=== PATIENT | female | born 1940 | race Hispanic/Latino ===

== ENCOUNTER 2017-10-29 12:31 | Emergency (ER) | payer MEDICARE ==
[~2017-10-29] VITALS: Ht 149.9 cm; Wt 99.8 kg
[~2017-10-29 12:31] MED LIST: AMARYL4 MG PO; BENTYL20 MG PO; BUMETANIDE1 MG PO; CELEXA20 MG PO; CIPRO500 MG PO; DALIRESP500 MCG PO; DOCUSATE SODIU100 MG PO; HYDROCODONE-AP1 EA28 PO; K-DUR20 ME1 PO; LIPITOR10 MG PO; METOLAZONE PO; MINOCYCLINE HCL50 MG PO; MONTELUKAST SOD10 MG PO; NORCO 10MG-325MG1 EA PO; TIMOPTIC 0.5% OP5 ML OP; Z DEPAKOTE PO; Z.0.ACTOS45 MG PO; Z.0.AMLODIPINE BESYL PO; Z.0.GLYBURIDE MICRON PO; Z.0.LASIX40 MG PO; Z.0.OMEPRAZOLE40 MG PO; Z.0.TIZANIDINE HCL4 PO; Z.1.ALPRAZOLAM0.25 M PO
[2017-10-29] MEDS ORDERED: SODIUM CHLORIDE FLUSH 10 ML SYR INJ PRN (13:15)
--- NOTE | 2017-10-29 16:07 | Diagnostic Imaging Report ---
PROCEDURE: Frontal and lateral views of the chest. COMPARISON: None. INDICATIONS: CONGESTION AND SHORTNESS OF BREATH FINDINGS: Lines/tubes: None. Lungs: Basilar subsegmental atelectasis. No consolidation or pulmonary edema. Pleura: There is no pleural effusion or pneumothorax. Heart and mediastinum: The heart size is at the upper limit of normal, unchanged. Bones: No acute bony abnormality. IMPRESSION: No evidence of infection or edema. Dictated by: Volodymyr Butler M.D. on 10/29/2017 at 16:16 Electronically approved by: Volodymyr Butler M.D. on 10/29/2017 at 16:16
[2017-10-29 20:20] LABS: BILIRUBIN,URINE NEGATIVE (NEGATIVE); CLARITY,URINE SL CLOUDY (CLEAR); COLOR,URINE YELLOW (YELLOW); KETONES,URINE NEGATIVE (NEGATIVE); LEUKOCYTE ESTERASE ,URINE 1+ (NEGATIVE); NITRITE,URINE NEGATIVE (NEGATIVE); PROTEIN,URINE DIPSTICK TRACE (NEGATIVE); URINE UROBILINOGEN 0.2 mg/dL (0.2 - 1)
[2017-10-29 20:35] LABS: BASOPHILS # (AUTO) 0.1 (0.0-0.1); BASOPHILS % 1.2 % (0.0-1.0); EOSINOPHILS # (AUTO) 0.1 (0.0-0.4); EOSINOPHILS % 2.5 % (0.0-6.0); HEMATOCRIT 34.8 % (34.2-44.1); HEMOGLOBIN 11.2 g/dL (12.0-16.0); LYMPHOCYTES # (AUTO) 1.4 (1.0-3.2); LYMPHOCYTES % 26.4 % (18.0-39.1); MEAN CORPUSCULAR HEMOGLOBIN 29.3 pg (28-32); MEAN CORPUSCULAR HGB CONC 32.2 g/dL (31-35); MEAN CORPUSCULAR VOLUME 91.1 fL (81-99); MONOCYTES # (AUTO) 0.6 (0.2-0.8); MONOCYTES % 11.1 % (4.4-11.3); NEUTROPHILS % 58.6 % (38.7-80.0); PLATELET COUNT 223 x10e3/uL (140-360); RED BLOOD COUNT 3.82 x10e6/uL (3.6-5.1); RED CELL DISTRIBUTION WIDTH 13.9 % (11.7-14.4)
[2017-10-29 20:38] LABS: RBC,URINE 0-5 /HPF (0-5)
[2017-10-29 20:39] LABS: BACTERIA,URINE FEW /HPF; EPITHELIAL CELLS,URINE FEW /LPF
[2017-10-29 20:53] LABS: ALBUMIN 3.8 g/dL (3.5-5.0); ANION GAP 12.9 mmol/L (8-16); CALCIUM 9.3 mg/dL (8.4-10.2); CREATININE, SERUM 1.03 mg/dL (0.57-1.11)
[2017-10-29 20:54] LABS: POTASSIUM 2.9 mmol/L (3.5-5.1)
[2017-10-29 21:07] LABS: CREATINE KINASE MB 0.4 ng/mL (0.00-5.00); TROPONIN I 0.007 ng/mL (0-0.300)
[2017-10-29] MEDS ORDERED: POTASSIUM CHLORIDE 20 MEQ TAB CR PO ONE (21:30)
[2017-10-29 22:14] VITALS: BP 124/44
== END 2017-10-29 22:18 | disposition home or self-care (01) ==
LOC: ER 12:31
DX: R07.89 Other chest pain (principal); E87.6 Hypokalemia; N30.91 Cystitis, unspecified with hematuria
CPT/HCPCS: 36415; 71020; 80053; 81001; 82550; 82553; 83880; 84484; 85025; 87086; 87400; 93005; 99284

== ENCOUNTER 2021-12-05 16:35 | Observation (INO) | payer MEDICARE ==
[~2021-12-05] VITALS: Ht 149.9 cm; Wt 99.8 kg
[2021-12-05] MEDS ORDERED: SODIUM CHLORIDE 0.9% 1000ML 1,000 ML IV ONE (17:00)
[2021-12-05 17:29] LABS: BASOPHILS # (AUTO) 0.1 (0.0-0.1); BASOPHILS % 0.5 % (0.0-1.0); EOSINOPHILS # (AUTO) 0.1 (0.0-0.4); EOSINOPHILS % 0.8 % (0.0-6.0); HEMOGLOBIN 12.1 g/dL (12.0-16.0); LYMPHOCYTES # (AUTO) 1.5 (1.0-3.2); LYMPHOCYTES % 15.2 % (18.0-39.1); MEAN CORPUSCULAR HEMOGLOBIN 28.5 pg (28-32); MEAN CORPUSCULAR HGB CONC 34.6 g/dL (31-35); MEAN CORPUSCULAR VOLUME 82.5 fL (81-99); MONOCYTES # (AUTO) 0.6 (0.2-0.8); MONOCYTES % 6.4 % (4.4-11.3); NEUTROPHILS # (AUTO) 7.5 (2.1-6.9); NEUTROPHILS % 76.7 % (38.7-80.0); PLATELET COUNT 276 x10e3/uL (140-360); RED BLOOD COUNT 4.24 x10e6/uL (3.6-5.1); RED CELL DISTRIBUTION WIDTH 13.2 % (11.7-14.4)
[2021-12-05 17:54] LABS: ALBUMIN 3.7 g/dL (3.5-5.0); ANION GAP 16.5 mmol/L (8-16); CALCIUM 9.6 mg/dL (8.4-10.2); CREATININE, SERUM 1.53 mg/dL (0.57-1.11); POTASSIUM 4.5 mmol/L (3.5-5.1)
[2021-12-05 17:58] LABS: CLARITY,URINE CLEAR (CLEAR); COLOR,URINE YELLOW (YELLOW); KETONES,URINE NEGATIVE (NEGATIVE); LEUKOCYTE ESTERASE ,URINE NEGATIVE (NEGATIVE); NITRITE,URINE NEGATIVE (NEGATIVE); PROTEIN,URINE DIPSTICK NEGATIVE (NEGATIVE); URINE UROBILINOGEN 0.2 mg/dL (0.2 - 1)
[2021-12-05 18:04] LABS: BACTERIA,URINE FEW /HPF; EPITHELIAL CELLS,URINE FEW /LPF; RBC,URINE 0-5 /HPF (0-5); WBC,URINE (MAN) 0-5 /HPF (0-5)
[2021-12-05] MEDS ORDERED: INSULIN REGULAR, HUMAN 100 UNIT/1 ML SQ ONE (18:15)
[2021-12-05] MEDS ORDERED: DEXTROSE 50% SYRINGE 50 ML IV PRN (18:30)
[2021-12-05] MEDS ORDERED: ONDANSETRON HCL INJ 2MG/ML 2ML 2 MG/ML VIAL IV PRN (18:30)
[2021-12-05 21:00] VITALS: BP 111/57
[2021-12-05] MEDS ORDERED: INSULIN REGULAR, HUMAN 100 UNIT/1 ML SQ SCH (21:00)
[2021-12-05 21:06] VITALS: BP 152/49
[2021-12-05 22:10] VITALS: BP 152/49
[2021-12-06] VITALS (7 sets, daily range): BP systolic 0–172; BP diastolic 64–88
[2021-12-06 06:49] LABS: ANION GAP 10.6 mmol/L (8-16); CALCIUM 8.8 mg/dL (8.4-10.2); CREATININE, SERUM 0.87 mg/dL (0.57-1.11); POTASSIUM 3.6 mmol/L (3.5-5.1)
[2021-12-06] MEDS ORDERED: DOCUSATE SODIUM 100 MG CAP PO SCH (07:15)
[2021-12-06] MEDS ORDERED: DEXTROSE 50% SYRINGE 50 ML IV PRN (07:15)
[2021-12-06] MEDS ORDERED: METFORMIN HCL500 MG PO (07:17)
[2021-12-06] MEDS ORDERED: FAMOTIDINE 20 MG TAB PO SCH (07:30)
[2021-12-06] MEDS: INSULIN REGULAR, HUMAN 100 UNIT/1 ML SQ SCH ×2 (07:30→11:30)
[2021-12-06 07:59] LABS: CHOL/HDL RATIO 3.1 (3.0-3.6)
[2021-12-06] MEDS ORDERED: METFORMIN HCL 500 MG TAB PO SCH (08:00)
[2021-12-06] MEDS ORDERED: GLIMEPIRIDE 2 MG TAB PO SCH (08:00)
[2021-12-06] MEDS ORDERED: AMLODIPINE BESYLATE 5 MG TAB PO SCH (09:00)
[2021-12-06] MEDS ORDERED: TIMOLOL MALEATE 0.5% OPTH DRP 5 ML BTL OP SCH (09:00)
[2021-12-06] MEDS ORDERED: PIOGLITAZONE HCL 45 MG TAB PO SCH (09:00)
[2021-12-06] MEDS ORDERED: DICYCLOMINE HCL 20 MG TAB PO SCH (09:00)
[2021-12-06] MEDS ORDERED: ALPRAZOLAM 0.25 MG TAB PO SCH (09:00)
[2021-12-06] MEDS ORDERED: CITALOPRAM HYDROBROMIDE 20 MG TAB PO SCH (09:00)
[2021-12-06] MEDS ORDERED: LABETALOL HCL 5 MG/ML 20ML VIAL IV NR ×2 (09:15→10:00)
[2021-12-06] MEDS ORDERED: MONTELUKAST SODIUM 10 MG TAB PO SCH (21:00)
== END 2021-12-06 14:39 | disposition home or self-care (01) ==
LOC: ER 16:55 → ERHOLD 18:18 → INTOOBSV 18:18 → MED/SURG2 21:03
PROVIDERS: ADMIT Internal Medicine; ATTEND Internal Medicine
DX: E11.65 Type 2 diabetes mellitus with hyperglycemia (principal); N17.9 Acute kidney failure, unspecified; F03.90 Unspecified dementia, unspecified severity, without behavioral disturbance, psychotic disturbance, mood disturbance, and anxiety; I10 Essential (primary) hypertension; I11.0 Hypertensive heart disease with heart failure; I50.9 Heart failure, unspecified; Z91.14 Patient's other noncompliance with medication regimen; I27.20 Pulmonary hypertension, unspecified; F31.9 Bipolar disorder, unspecified; M81.0 Age-related osteoporosis without current pathological fracture; Z20.822 Contact with and (suspected) exposure to COVID-19; Z79.4 Long term (current) use of insulin
CPT/HCPCS: 36415 ×2; 70450; 71045; 80048; 80053; 80061; 81001; 82948 ×2; 83036; 85025; 94799 ×2; 97116; 97139; 97161; 99284; G0378 ×2; J1817 ×2; U0002

== ENCOUNTER 2022-10-04 15:48 | Inpatient (IN) | payer MEDICARE ==
[~2022-10-04] VITALS: Ht 149.9 cm; Wt 38.6 kg
[~2022-10-04 15:48] MED LIST changes: +EPHEDRINE SULFATE INJ 50 MG/ML VIAL ONE; +LIDOCAINE HCL 2% LOCAL INJ 5 ML SDV VIAL INJ ONE; +METFORMIN HCL500 MG PO; +PROPOFOL IV EMULSION 10 MG/ML 20 ML VIAL ONE
[2022-10-04] MEDS ORDERED: SODIUM CHLORIDE 0.9% 1000ML 1,000 ML IV SCH ×2 (17:15)
[2022-10-04 17:37] LABS: BASOPHILS % 0.3 % (0.0-1.0); EOSINOPHILS % 0.1 % (0.0-6.0); HEMATOCRIT 46.9 % (34.2-44.1); HEMOGLOBIN 13.9 g/dL (12.0-16.0); LYMPHOCYTES # (AUTO) 2.4 (1.0-3.2); LYMPHOCYTES % 17.6 % (18.0-39.1); MEAN CORPUSCULAR HEMOGLOBIN 29.6 pg (28-32); MEAN CORPUSCULAR HGB CONC 29.6 g/dL (31-35); MONOCYTES # (AUTO) 1.5 (0.2-0.8); MONOCYTES % 10.8 % (4.4-11.3); NEUTROPHILS # (AUTO) 9.5 (2.1-6.9); NEUTROPHILS % 70.6 % (38.7-80.0); PLATELET COUNT 391 x10e3/uL (140-360); RED BLOOD COUNT 4.69 x10e6/uL (3.6-5.1); RED CELL DISTRIBUTION WIDTH 14.3 % (11.7-14.4)
[2022-10-04 17:42] LABS: CLARITY,URINE HAZY (CLEAR); COLOR,URINE BROWN (YELLOW); KETONES,URINE TRACE (NEGATIVE); LEUKOCYTE ESTERASE ,URINE NEGATIVE (NEGATIVE); NITRITE,URINE POSITIVE (NEGATIVE); PROTEIN,URINE DIPSTICK 2+ (NEGATIVE); URINE UROBILINOGEN 1 mg/dL (0.2 - 1)
[2022-10-04 17:43] LABS: INR 1.1; PROTHROMBIN TIME 14.4 seconds (11.9-14.5)
[2022-10-04 17:44] LABS: AMORPHOUS SEDIMENT,URINE FEW (FEW); BACTERIA,URINE FEW /HPF; EPITHELIAL CELLS,URINE FEW /LPF; MUCUS,URINE FEW (RARE); RBC,URINE 0-5 /HPF (0-5)
[2022-10-04 17:44] LABS: PARTIAL THROMBOPLASTIN TIME 24.9 seconds (23.8-35.5)
[2022-10-04 17:51] LABS: ALBUMIN 3.3 g/dL (3.5-5.0); ALBUMIN/GLOBULIN RATIO 0.8 (0.8-2.0); ANION GAP 29.9 mmol/L (8-16); CALCIUM 9.9 mg/dL (8.4-10.2); CREATININE, SERUM 2.65 mg/dL (0.57-1.11)
[2022-10-04 17:55] LABS: POTASSIUM 2.9 mmol/L (3.5-5.1)
[2022-10-04 17:57] LABS: CREATINE KINASE MB 1.8 ng/mL (0-5.0)
[2022-10-04] MEDS ORDERED: AMIODARONE HCL 150 MG/100 ML BAG IV ONE (18:00)
[2022-10-04] MEDS ORDERED: AMIODARONE 900MG 500 ML IV SCH (18:00)
[2022-10-04 18:07] LABS: LYMPHOCYTES % (MANUAL) 25 % (19-48); MONOCYTES % (MANUAL) 5 % (3.4-9.0); NEUTROPHILS % (MANUAL) 69 % (40-74); PLATELET ESTIMATE ADEQUATE; PLATELET MORPHOLOGY COMMENT NORMAL
[2022-10-04 18:08] LABS: HYPOCHROMASIA SLIGHT; RBC MORPHOLOGY COMMENT NORMAL
[2022-10-04] MEDS ORDERED: POTASSIUM CHLORIDE 20MEQ/100ML 200 ML IV ONE (18:15)
[2022-10-04] MEDS ORDERED: DIGOXIN INJ 0.25 MG/ML 2 ML AMP ONE (18:24)
[2022-10-04] MEDS ORDERED: AMIODARONE HCL 100 ML IV ONE (18:25)
[2022-10-04] MEDS ORDERED: AMIODARONE 900MG 500 ML IV ONE (18:25)
[2022-10-04] MEDS ORDERED: DIGOXIN INJ 0.25 MG/ML 2 ML AMP IV ONE (18:30)
[2022-10-04] MEDS ORDERED: ONDANSETRON HCL INJ 2MG/ML 2ML 2 MG/ML VIAL IV PRN (19:30)
[2022-10-04] MEDS ORDERED: SODIUM CHLORIDE 0.45% 1,000 ML IV ONE ×2 (19:30→23:45)
[2022-10-04] MEDS ORDERED: DEXTROSE 50% SYRINGE 50 ML IV PRN (19:30)
[2022-10-04 20:30] VITALS: BP 120/70
[2022-10-04 20:45] VITALS: BP 133/66
[2022-10-04 21:00] VITALS: BP 153/60
[2022-10-04] MEDS: INSULIN REGULAR, HUMAN 100 UNIT/1 ML SQ SCH (21:00)
[2022-10-04 21:15] VITALS: BP 160/68
[2022-10-04 22:00] VITALS: BP 142/70
[2022-10-04 23:00] VITALS: BP 138/72
[2022-10-04] MEDS: POTASSIUM CHLORIDE 20MEQ/100ML 200 ML IV SCH (23:58)
[2022-10-05] VITALS (27 sets, daily range): BP systolic 121–183; BP diastolic 57–108
[2022-10-05] MEDS: POTASSIUM CHLORIDE 20MEQ/100ML 200 ML IV SCH
[2022-10-05] MEDS ORDERED: GUAIFENESIN/DEXTROMETHORPHAN LIQD 5 ML UDC PO PRN (05:30)
[2022-10-05] MEDS ORDERED: ACETAMINOPHEN 325 MG TAB PO PRN (05:30)
[2022-10-05] MEDS ORDERED: THIAMINE HCL INJ 100 MG/ML 2ML VIAL IV ONE (05:30)
[2022-10-05] MEDS ORDERED: MELATONIN 3 MG TAB PO PRN (05:30)
[2022-10-05] MEDS ORDERED: DOCUSATE SODIUM 100 MG CAP PO PRN (05:30)
[2022-10-05 06:56] LABS: BASOPHILS % 0.2 % (0.0-1.0); EOSINOPHILS % 0.2 % (0.0-6.0); HEMATOCRIT 35.2 % (34.2-44.1); HEMOGLOBIN 10.6 g/dL (12.0-16.0); LYMPHOCYTES # (AUTO) 0.9 (1.0-3.2); LYMPHOCYTES % 8.8 % (18.0-39.1); MEAN CORPUSCULAR HEMOGLOBIN 29.7 pg (28-32); MEAN CORPUSCULAR HGB CONC 30.1 g/dL (31-35); MEAN CORPUSCULAR VOLUME 98.6 fL (81-99); MONOCYTES # (AUTO) 1.1 (0.2-0.8); MONOCYTES % 10.9 % (4.4-11.3); NEUTROPHILS # (AUTO) 7.9 (2.1-6.9); NEUTROPHILS % 79.5 % (38.7-80.0); PLATELET COUNT 226 x10e3/uL (140-360); RED BLOOD COUNT 3.57 x10e6/uL (3.6-5.1)
[2022-10-05 07:16] LABS: ALBUMIN 2.5 g/dL (3.5-5.0); ALBUMIN/GLOBULIN RATIO 0.8 (0.8-2.0); ANION GAP 19.5 mmol/L (8-16); CALCIUM 8.3 mg/dL (8.4-10.2); CREATININE, SERUM 1.66 mg/dL (0.57-1.11); POTASSIUM 3.5 mmol/L (3.5-5.1)
[2022-10-05 07:36] LABS: MAGNESIUM 1.3 MG/DL (1.3-2.1); PHOSPHORUS 2.2 MG/DL (2.3-4.7)
[2022-10-05] MEDS: MULTIVITAMINS/MINERALS TAB PO SCH (08:03)
[2022-10-05] MEDS: HEPARIN SOD (PORCINE) 5,000 UNIT/ML VIAL SC SCH ×2 (08:11→21:16)
[2022-10-05] MEDS: INSULIN REGULAR, HUMAN 100 UNIT/1 ML SQ SCH ×4 (08:12→21:00)
[2022-10-05 09:13] LABS: BAND NEUTROPHILS % (MANUAL) 1 %; LYMPHOCYTES % (MANUAL) 7 % (19-48); MONOCYTES % (MANUAL) 5 % (3.4-9.0); NEUTROPHILS % (MANUAL) 87 % (40-74); PLATELET ESTIMATE ADEQUATE; PLATELET MORPHOLOGY COMMENT NORMAL; RBC MORPHOLOGY COMMENT NORMAL
[2022-10-05] MEDS: SODIUM CHLORIDE 0.45% 1,000 ML IV SCH ×2 (12:18→22:28)
[2022-10-05] MEDS ORDERED: POTASSIUM CHLORIDE 20MEQ/100ML 200 ML IV ONE (12:30)
[2022-10-05] MEDS: HYDRALAZINE HCL 20 MG/ML VIAL IV PRN (13:03)
[2022-10-05] MEDS: AMIODARONE 900MG 500 ML IV SCH (18:49)
[2022-10-06] VITALS (26 sets, daily range): BP systolic 108–197; BP diastolic 54–100
[2022-10-06] MEDS: HYDRALAZINE HCL 20 MG/ML VIAL IV PRN ×3 (03:15→20:16)
[2022-10-06 06:02] LABS: BASOPHILS # (AUTO) 0.1 (0.0-0.1); BASOPHILS % 0.5 % (0.0-1.0); EOSINOPHILS # (AUTO) 0.1 (0.0-0.4); EOSINOPHILS % 0.5 % (0.0-6.0); HEMATOCRIT 34.2 % (34.2-44.1); HEMOGLOBIN 11.3 g/dL (12.0-16.0); LYMPHOCYTES # (AUTO) 0.9 (1.0-3.2); LYMPHOCYTES % 9.6 % (18.0-39.1); MEAN CORPUSCULAR HEMOGLOBIN 30.2 pg (28-32); MEAN CORPUSCULAR VOLUME 91.4 fL (81-99); MONOCYTES # (AUTO) 0.7 (0.2-0.8); MONOCYTES % 6.8 % (4.4-11.3); NEUTROPHILS # (AUTO) 7.9 (2.1-6.9); NEUTROPHILS % 81.8 % (38.7-80.0); PLATELET COUNT 198 x10e3/uL (140-360); RED BLOOD COUNT 3.74 x10e6/uL (3.6-5.1); RED CELL DISTRIBUTION WIDTH 14.1 % (11.7-14.4)
[2022-10-06 06:31] LABS: ALBUMIN 2.4 g/dL (3.5-5.0); ALBUMIN/GLOBULIN RATIO 0.7 (0.8-2.0); ANION GAP 19.3 mmol/L (8-16); CALCIUM 8.3 mg/dL (8.4-10.2); CREATININE, SERUM 0.92 mg/dL (0.57-1.11); POTASSIUM 3.3 mmol/L (3.5-5.1)
[2022-10-06] MEDS: MULTIVITAMINS/MINERALS TAB PO SCH (07:48)
[2022-10-06] MEDS: SODIUM CHLORIDE 0.45% 1,000 ML IV SCH ×2 (08:05→18:03)
[2022-10-06] MEDS: HEPARIN SOD (PORCINE) 5,000 UNIT/ML VIAL SC SCH ×2 (08:08→20:19)
[2022-10-06] MEDS: INSULIN REGULAR, HUMAN 100 UNIT/1 ML SQ SCH ×4 (08:14→20:15)
[2022-10-06] MEDS ORDERED: POTASSIUM CHLORIDE 20MEQ/100ML 200 ML IV ONE (15:00)
[2022-10-07] VITALS (29 sets, daily range): BP systolic 116–210; BP diastolic 46–133
[2022-10-07] MEDS: HYDRALAZINE HCL 20 MG/ML VIAL IV PRN ×2 (02:31→11:23)
[2022-10-07] MEDS: SODIUM CHLORIDE 0.45% 1,000 ML IV SCH (05:13)
[2022-10-07 06:34] LABS: BASOPHILS % 0.2 % (0.0-1.0); EOSINOPHILS % 0.3 % (0.0-6.0); HEMATOCRIT 35.8 % (34.2-44.1); LYMPHOCYTES # (AUTO) 0.8 (1.0-3.2); LYMPHOCYTES % 8.6 % (18.0-39.1); MEAN CORPUSCULAR HEMOGLOBIN 29.2 pg (28-32); MEAN CORPUSCULAR HGB CONC 30.7 g/dL (31-35); MONOCYTES # (AUTO) 0.5 (0.2-0.8); MONOCYTES % 5.2 % (4.4-11.3); NEUTROPHILS % 85.1 % (38.7-80.0); PLATELET COUNT 201 x10e3/uL (140-360); RED BLOOD COUNT 3.77 x10e6/uL (3.6-5.1); RED CELL DISTRIBUTION WIDTH 13.4 % (11.7-14.4)
[2022-10-07 07:14] LABS: ALBUMIN 2.3 g/dL (3.5-5.0); ALBUMIN/GLOBULIN RATIO 0.7 (0.8-2.0); ANION GAP 20.3 mmol/L (8-16); CALCIUM 8.1 mg/dL (8.4-10.2); CREATININE, SERUM 0.75 mg/dL (0.57-1.11); POTASSIUM 3.3 mmol/L (3.5-5.1)
[2022-10-07] MEDS: HEPARIN SOD (PORCINE) 5,000 UNIT/ML VIAL SC SCH ×2 (08:35→20:12)
[2022-10-07] MEDS: INSULIN REGULAR, HUMAN 100 UNIT/1 ML SQ SCH ×4 (08:41→20:12)
[2022-10-07] MEDS ORDERED: POTASSIUM CHLORIDE 20MEQ/100ML 100 ML IV ONE (08:45)
[2022-10-07] MEDS: MULTIVITAMINS/MINERALS TAB PO SCH ×2 (08:52→09:00)
[2022-10-07] MEDS ORDERED: DEXTROSE 5%/0.45% SOD CHL 1,000 ML IV SCH (09:45)
[2022-10-07] MEDS ORDERED: Vancomycin IV 1 GM in SODIUM CHLORIDE 0.9% 250ML 250 ML IV ONE (12:00)
[2022-10-07] MEDS: DEXTROSE 5%/0.45% SOD CHL 1,000 ML IV SCH (19:29)
[2022-10-07] MEDS: ALBUTEROL/IPRATROPIUM 3 ML NEB NEB PRN (22:20)
[2022-10-08] VITALS (25 sets, daily range): BP systolic 109–161; BP diastolic 46–131
[2022-10-08] MEDS: ALBUTEROL/IPRATROPIUM 3 ML NEB NEB PRN ×2 (02:55→19:50)
[2022-10-08] MEDS: DEXTROSE 5%/0.45% SOD CHL 1,000 ML IV SCH ×2 (03:26→22:18)
[2022-10-08 06:43] LABS: BASOPHILS # (AUTO) 0.1 (0.0-0.1); BASOPHILS % 0.9 % (0.0-1.0); HEMATOCRIT 29.8 % (34.2-44.1); HEMOGLOBIN 10.2 g/dL (12.0-16.0); LYMPHOCYTES # (AUTO) 0.7 (1.0-3.2); LYMPHOCYTES % 5.5 % (18.0-39.1); MEAN CORPUSCULAR HEMOGLOBIN 29.7 pg (28-32); MEAN CORPUSCULAR HGB CONC 34.2 g/dL (31-35); MEAN CORPUSCULAR VOLUME 86.9 fL (81-99); MONOCYTES # (AUTO) 0.3 (0.2-0.8); MONOCYTES % 2.3 % (4.4-11.3); NEUTROPHILS # (AUTO) 10.7 (2.1-6.9); NEUTROPHILS % 90.6 % (38.7-80.0); PLATELET COUNT 129 x10e3/uL (140-360); RED BLOOD COUNT 3.43 x10e6/uL (3.6-5.1); RED CELL DISTRIBUTION WIDTH 13.2 % (11.7-14.4)
[2022-10-08 07:15] LABS: ALBUMIN 2.2 g/dL (3.5-5.0); ALBUMIN/GLOBULIN RATIO 0.8 (0.8-2.0); CALCIUM 7.7 mg/dL (8.4-10.2); CREATININE, SERUM 0.75 mg/dL (0.57-1.11)
[2022-10-08] MEDS: INSULIN REGULAR, HUMAN 100 UNIT/1 ML SQ SCH ×4 (08:08→21:00)
[2022-10-08] MEDS: HEPARIN SOD (PORCINE) 5,000 UNIT/ML VIAL SC SCH ×2 (08:13→20:58)
[2022-10-08] MEDS: MULTIVITAMINS/MINERALS TAB PO SCH (08:13)
[2022-10-08 08:49] LABS: BAND NEUTROPHILS % (MANUAL) 2 %; LYMPHOCYTES % (MANUAL) 5 % (19-48); MONOCYTES % (MANUAL) 1 % (3.4-9.0); MYELOCYTES % (MANUAL) 1 % (0-0); NEUTROPHILS % (MANUAL) 91 % (40-74)
[2022-10-08 08:50] LABS: PLATELET ESTIMATE SLIGHTLY DECREASED; PLATELET MORPHOLOGY COMMENT NORMAL; RBC MORPHOLOGY COMMENT NORMAL
[2022-10-08] MEDS ORDERED: POTASSIUM CHLORIDE 20MEQ/100ML 100 ML IV ONE ×2 (09:00→12:00)
[2022-10-08] MEDS ORDERED: QUETIAPINE FUMARATE 25 MG TAB PO SCH (20:00)
[2022-10-08] MEDS ORDERED: QUETIAPINE FUMARATE 25 MG TAB PO PRN (20:15)
[2022-10-09] VITALS (30 sets, daily range): BP systolic 72–162; BP diastolic 36–116
[2022-10-09] MEDS: INSULIN REGULAR, HUMAN 100 UNIT/1 ML SQ SCH ×4 (07:53→20:23)
[2022-10-09] MEDS: HEPARIN SOD (PORCINE) 5,000 UNIT/ML VIAL SC SCH ×2 (08:29→20:30)
[2022-10-09] MEDS: MULTIVITAMINS/MINERALS TAB PO SCH (08:35)
[2022-10-09 08:49] LABS: BASOPHILS % 0.1 % (0.0-1.0); EOSINOPHILS % 0.1 % (0.0-6.0); HEMATOCRIT 28.7 % (34.2-44.1); HEMOGLOBIN 9.5 g/dL (12.0-16.0); LYMPHOCYTES # (AUTO) 0.5 (1.0-3.2); MEAN CORPUSCULAR HEMOGLOBIN 29.9 pg (28-32); MEAN CORPUSCULAR HGB CONC 33.1 g/dL (31-35); MEAN CORPUSCULAR VOLUME 90.3 fL (81-99); MONOCYTES # (AUTO) 0.2 (0.2-0.8); MONOCYTES % 1.5 % (4.4-11.3); NEUTROPHILS # (AUTO) 9.6 (2.1-6.9); NEUTROPHILS % 92.9 % (38.7-80.0); PLATELET COUNT 123 x10e3/uL (140-360); RED BLOOD COUNT 3.18 x10e6/uL (3.6-5.1); RED CELL DISTRIBUTION WIDTH 13.2 % (11.7-14.4)
[2022-10-09 09:03] LABS: ANION GAP 15.2 mmol/L (8-16); CALCIUM 7.4 mg/dL (8.4-10.2); CREATININE, SERUM 0.74 mg/dL (0.57-1.11); PHOSPHORUS 2.6 MG/DL (2.3-4.7); POTASSIUM 3.2 mmol/L (3.5-5.1)
[2022-10-09 09:08] LABS: MAGNESIUM 0.8 MG/DL (1.3-2.1)
[2022-10-09] MEDS ORDERED: POTASSIUM CHLORIDE 20MEQ/100ML 200 ML IV ONE (11:45)
[2022-10-09] MEDS ORDERED: MAGNESIUM SULFATE 2GM/50ML 50 ML IV ONE (11:45)
[2022-10-09] MEDS: DEXTROSE 5%/0.45% SOD CHL 1,000 ML IV SCH (14:13)
[2022-10-10] VITALS (26 sets, daily range): BP systolic 101–175; BP diastolic 47–99
[2022-10-10] MEDS: DEXTROSE 5%/0.45% SOD CHL 1,000 ML IV SCH ×2 (06:32→22:51)
[2022-10-10 07:03] LABS: BASOPHILS % 0.4 % (0.0-1.0); EOSINOPHILS % 0.3 % (0.0-6.0); HEMOGLOBIN 9.2 g/dL (12.0-16.0); LYMPHOCYTES # (AUTO) 0.5 (1.0-3.2); LYMPHOCYTES % 6.6 % (18.0-39.1); MEAN CORPUSCULAR HEMOGLOBIN 29.1 pg (28-32); MEAN CORPUSCULAR HGB CONC 34.1 g/dL (31-35); MONOCYTES # (AUTO) 0.1 (0.2-0.8); NEUTROPHILS # (AUTO) 6.3 (2.1-6.9); NEUTROPHILS % 90.1 % (38.7-80.0); RED BLOOD COUNT 3.16 x10e6/uL (3.6-5.1); RED CELL DISTRIBUTION WIDTH 13.8 % (11.7-14.4)
[2022-10-10 07:05] LABS: MEAN CORPUSCULAR VOLUME 85.4 fL (81-99); PLATELET COUNT 93 x10e3/uL (140-360)
[2022-10-10 07:09] LABS: ALBUMIN 1.9 g/dL (3.5-5.0); ALBUMIN/GLOBULIN RATIO 0.7 (0.8-2.0); ANION GAP 15.3 mmol/L (8-16); CALCIUM 7.4 mg/dL (8.4-10.2); CREATININE, SERUM 0.72 mg/dL (0.57-1.11); POTASSIUM 3.3 mmol/L (3.5-5.1)
[2022-10-10 07:42] LABS: MAGNESIUM 1.4 MG/DL (1.3-2.1); PHOSPHORUS 2.5 MG/DL (2.3-4.7)
[2022-10-10] MEDS ORDERED: POTASSIUM CHLORIDE 20MEQ/100ML 100 ML IV ONE ×2 (07:45→11:15)
[2022-10-10] MEDS: MULTIVITAMINS/MINERALS TAB PO SCH (08:16)
[2022-10-10] MEDS: HEPARIN SOD (PORCINE) 5,000 UNIT/ML VIAL SC SCH ×2 (08:17→20:11)
[2022-10-10] MEDS: INSULIN REGULAR, HUMAN 100 UNIT/1 ML SQ SCH ×4 (08:17→20:06)
[2022-10-10 10:10] LABS: EOSINOPHILS % (MANUAL) 1 % (0-7); LYMPHOCYTES % (MANUAL) 15 % (19-48); MONOCYTES % (MANUAL) 1 % (3.4-9.0); NEUTROPHILS % (MANUAL) 83 % (40-74)
[2022-10-10 10:11] LABS: HYPOCHROMASIA SLIGHT; PLATELET MORPHOLOGY COMMENT NORMAL; RBC MORPHOLOGY COMMENT NORMAL
[2022-10-10 10:12] LABS: PLATELET ESTIMATE SLIGHTLY DECREASED
[2022-10-10] MEDS ORDERED: MAGNESIUM SULFATE 2GM/50ML 50 ML IV ONE (11:15)
[2022-10-10] MEDS: AMIODARONE 900MG 500 ML IV SCH (16:06)
[2022-10-11] VITALS (25 sets, daily range): BP systolic 108–175; BP diastolic 39–96
[2022-10-11 07:32] LABS: BASOPHILS % 0.2 % (0.0-1.0); EOSINOPHILS # (AUTO) 0.1 (0.0-0.4); EOSINOPHILS % 1.1 % (0.0-6.0); HEMATOCRIT 25.3 % (34.2-44.1); HEMOGLOBIN 8.6 g/dL (12.0-16.0); LYMPHOCYTES # (AUTO) 0.6 (1.0-3.2); LYMPHOCYTES % 13.6 % (18.0-39.1); MEAN CORPUSCULAR VOLUME 85.2 fL (81-99); MONOCYTES # (AUTO) 0.1 (0.2-0.8); MONOCYTES % 2.4 % (4.4-11.3); NEUTROPHILS # (AUTO) 3.7 (2.1-6.9); PLATELET COUNT 93 x10e3/uL (140-360); RED BLOOD COUNT 2.97 x10e6/uL (3.6-5.1); RED CELL DISTRIBUTION WIDTH 13.9 % (11.7-14.4)
[2022-10-11 07:50] LABS: ALBUMIN 1.8 g/dL (3.5-5.0); ALBUMIN/GLOBULIN RATIO 0.6 (0.8-2.0); ANION GAP 12.4 mmol/L (8-16); CALCIUM 7.3 mg/dL (8.4-10.2); CREATININE, SERUM 0.7 mg/dL (0.57-1.11); POTASSIUM 3.4 mmol/L (3.5-5.1)
[2022-10-11] MEDS: INSULIN REGULAR, HUMAN 100 UNIT/1 ML SQ SCH ×4 (08:01→20:02)
[2022-10-11] MEDS: MULTIVITAMINS/MINERALS TAB PO SCH (08:22)
[2022-10-11] MEDS: HEPARIN SOD (PORCINE) 5,000 UNIT/ML VIAL SC SCH ×2 (08:24→20:02)
[2022-10-11 10:35] LABS: LYMPHOCYTES % (MANUAL) 11 % (19-48); MONOCYTES % (MANUAL) 1 % (3.4-9.0); NEUTROPHILS % (MANUAL) 88 % (40-74); PLATELET ESTIMATE MODERATELY DECREASED; PLATELET MORPHOLOGY COMMENT NORMAL; RBC MORPHOLOGY COMMENT NORMAL
[2022-10-11] MEDS ORDERED: POTASSIUM CHLORIDE 20MEQ/100ML 200 ML IV ONE (10:45)
[2022-10-11] MEDS: DEXTROSE 5%/0.45% SOD CHL 1,000 ML IV SCH (15:40)
[2022-10-12] VITALS (17 sets, daily range): BP systolic 79–151; BP diastolic 33–75
[2022-10-12] MEDS: DEXTROSE 5%/0.45% SOD CHL 1,000 ML IV SCH (06:51)
[2022-10-12 06:59] LABS: BASOPHILS % 0.7 % (0.0-1.0); EOSINOPHILS # (AUTO) 0.1 (0.0-0.4); EOSINOPHILS % 1.5 % (0.0-6.0); HEMATOCRIT 23.5 % (34.2-44.1); HEMOGLOBIN 8.1 g/dL (12.0-16.0); LYMPHOCYTES # (AUTO) 0.8 (1.0-3.2); LYMPHOCYTES % 18.7 % (18.0-39.1); MEAN CORPUSCULAR HEMOGLOBIN 29.8 pg (28-32); MEAN CORPUSCULAR HGB CONC 34.5 g/dL (31-35); MEAN CORPUSCULAR VOLUME 86.4 fL (81-99); MONOCYTES # (AUTO) 0.2 (0.2-0.8); MONOCYTES % 4.4 % (4.4-11.3); PLATELET COUNT 70 x10e3/uL (140-360); RED BLOOD COUNT 2.72 x10e6/uL (3.6-5.1); RED CELL DISTRIBUTION WIDTH 14.4 % (11.7-14.4)
[2022-10-12 07:11] LABS: ALBUMIN 1.7 g/dL (3.5-5.0); ALBUMIN/GLOBULIN RATIO 0.7 (0.8-2.0); ALKALINE PHOSPHATASE 54 IU/L (40-150); ANION GAP 11.9 mmol/L (8-16); BLOOD UREA NITROGEN 12 mg/dL (7-26); BUN/CREATININE RATIO 18 (6-25); CALCIUM 7.4 mg/dL (8.4-10.2); CARBON DIOXIDE 22 mmol/L (22-29); CHLORIDE 107 mmol/L (98-107); CREATININE, SERUM 0.67 mg/dL (0.57-1.11); GLUCOSE 235 mg/dL (74-118); POTASSIUM 3.9 mmol/L (3.5-5.1); SODIUM 137 mmol/L (136-145)
[2022-10-12 07:13] LABS: ALANINE AMINOTRANSFERASE < 6 IU/L (0-55)
[2022-10-12] MEDS: INSULIN REGULAR, HUMAN 100 UNIT/1 ML SQ SCH ×4 (07:50→22:15)
[2022-10-12] MEDS: MULTIVITAMINS/MINERALS TAB PO SCH (09:23)
[2022-10-12] MEDS: AMIODARONE HCL 200 MG TAB PO SCH (09:23)
[2022-10-12] MEDS ORDERED: SODIUM CHLORIDE 0.9% 250ML 250 ML ONE (13:27)
[2022-10-13] VITALS (8 sets, daily range): BP systolic 115–195; BP diastolic 49–89
[2022-10-13] MEDS: DEXTROSE 5%/0.45% SOD CHL 1,000 ML IV SCH ×2 (03:02→16:52)
[2022-10-13] MEDS: AMIODARONE HCL 200 MG TAB PO SCH (09:25)
[2022-10-13] MEDS: MULTIVITAMINS/MINERALS TAB PO SCH (09:25)
[2022-10-13] MEDS: INSULIN REGULAR, HUMAN 100 UNIT/1 ML SQ SCH ×4 (09:31→21:30)
[2022-10-13] MEDS ORDERED: ONDANSETRON HCL 4 MG ORAL DISINTEGRATING TAB SL PRN (10:15)
[2022-10-14] VITALS (9 sets, daily range): BP systolic 76–141; BP diastolic 40–69
[2022-10-14 06:21] LABS: BASOPHILS % 0.2 % (0.0-1.0); EOSINOPHILS % 0.2 % (0.0-6.0); HEMOGLOBIN 6.5 g/dL (12.0-16.0); LYMPHOCYTES # (AUTO) 0.9 (1.0-3.2); LYMPHOCYTES % 17.1 % (18.0-39.1); MEAN CORPUSCULAR HEMOGLOBIN 28.9 pg (28-32); MEAN CORPUSCULAR HGB CONC 31.4 g/dL (31-35); MONOCYTES # (AUTO) 0.6 (0.2-0.8); MONOCYTES % 12.5 % (4.4-11.3); NEUTROPHILS # (AUTO) 3.6 (2.1-6.9); NEUTROPHILS % 69.6 % (38.7-80.0); RED BLOOD COUNT 2.25 x10e6/uL (3.6-5.1); RED CELL DISTRIBUTION WIDTH 14.1 % (11.7-14.4)
[2022-10-14 06:43] LABS: HEMATOCRIT 20.7 % (34.2-44.1)
[2022-10-14 06:45] LABS: PLATELET COUNT 54 x10e3/uL (140-360)
[2022-10-14 06:48] LABS: ANION GAP 13.4 mmol/L (8-16); CALCIUM 7.7 mg/dL (8.4-10.2); CREATININE, SERUM 0.74 mg/dL (0.57-1.11); POTASSIUM 3.4 mmol/L (3.5-5.1)
[2022-10-14 06:49] LABS: MAGNESIUM 1.1 MG/DL (1.3-2.1)
[2022-10-14] MEDS ORDERED: MAGNESIUM SULFATE 2GM/50ML 50 ML IV ONE (08:00)
[2022-10-14 08:44] LABS: BAND NEUTROPHILS % (MANUAL) 2 %; LYMPHOCYTES % (MANUAL) 26 % (19-48); MONOCYTES % (MANUAL) 5 % (3.4-9.0); NEUTROPHILS % (MANUAL) 67 % (40-74)
[2022-10-14 08:45] LABS: HYPOCHROMASIA SLIGHT; PLATELET ESTIMATE MODERATELY DECREASED; PLATELET MORPHOLOGY COMMENT NORMAL; RBC MORPHOLOGY COMMENT NORMAL
[2022-10-14] MEDS: AMIODARONE HCL 200 MG TAB PO SCH (09:00)
[2022-10-14] MEDS: MULTIVITAMINS/MINERALS TAB PO SCH (09:00)
[2022-10-14] MEDS: INSULIN REGULAR, HUMAN 100 UNIT/1 ML SQ SCH ×4 (09:04→21:25)
[2022-10-14 10:33] LABS: HEMATOCRIT 19.2 % (34.2-44.1); HEMOGLOBIN 6.1 g/dL (12.0-16.0)
[2022-10-14] MEDS: DEXTROSE 5%/0.45% SOD CHL 1,000 ML IV SCH (12:23)
[2022-10-14] MEDS ORDERED: SODIUM CHLORIDE 0.9% 250ML 250 ML IV ONE (13:30)
[2022-10-14] MEDS ORDERED: SODIUM CHLORIDE 0.9% 250ML 250 ML ONE ×2 (17:17→21:53)
[2022-10-15 05:50] VITALS: BP 124/45
[2022-10-15 05:53] LABS: BASOPHILS % 0.3 % (0.0-1.0); EOSINOPHILS # (AUTO) 0.1 (0.0-0.4); EOSINOPHILS % 1.6 % (0.0-6.0); HEMATOCRIT 30.9 % (34.2-44.1); HEMOGLOBIN 10.3 g/dL (12.0-16.0); LYMPHOCYTES # (AUTO) 1.1 (1.0-3.2); LYMPHOCYTES % 18.2 % (18.0-39.1); MEAN CORPUSCULAR HEMOGLOBIN 29.9 pg (28-32); MEAN CORPUSCULAR HGB CONC 33.3 g/dL (31-35); MEAN CORPUSCULAR VOLUME 89.6 fL (81-99); MONOCYTES # (AUTO) 0.6 (0.2-0.8); MONOCYTES % 9.4 % (4.4-11.3); NEUTROPHILS # (AUTO) 4.3 (2.1-6.9); PLATELET COUNT 76 x10e3/uL (140-360); RED BLOOD COUNT 3.45 x10e6/uL (3.6-5.1); RED CELL DISTRIBUTION WIDTH 13.8 % (11.7-14.4)
[2022-10-15 08:21] LABS: ANION GAP 12.2 mmol/L (8-16); CALCIUM 7.7 mg/dL (8.4-10.2); CREATININE, SERUM 0.75 mg/dL (0.57-1.11); POTASSIUM 3.2 mmol/L (3.5-5.1)
[2022-10-15 08:34] LABS: EOSINOPHILS % (MANUAL) 1 % (0-7); LYMPHOCYTES % (MANUAL) 15 % (19-48); MONOCYTES % (MANUAL) 17 % (3.4-9.0); NEUTROPHILS % (MANUAL) 65 % (40-74); PLATELET ESTIMATE MODERATELY DECREASED; PLATELET MORPHOLOGY COMMENT NORMAL
[2022-10-15 08:35] LABS: RBC MORPHOLOGY COMMENT NORMAL
[2022-10-15 09:00] VITALS: BP 123/55
[2022-10-15 09:32] VITALS: BP 123/55
[2022-10-15] MEDS: MULTIVITAMINS/MINERALS TAB PO SCH (11:01)
[2022-10-15] MEDS: AMIODARONE HCL 200 MG TAB PO SCH (11:01)
[2022-10-15] MEDS: INSULIN REGULAR, HUMAN 100 UNIT/1 ML SQ SCH ×4 (11:02→20:21)
[2022-10-15] MEDS: DEXTROSE 5%/0.45% SOD CHL 1,000 ML IV SCH (11:06)
[2022-10-15 20:00] VITALS: BP 146/45
[2022-10-15 21:00] VITALS: BP 146/45
[2022-10-16] VITALS (7 sets, daily range): BP systolic 125–139; BP diastolic 44–54
[2022-10-16] MEDS ORDERED: DIPHENOXYLATE/ATROPINE TAB PO ONE (01:45)
[2022-10-16] MEDS: DEXTROSE 5%/0.45% SOD CHL 1,000 ML IV SCH ×2 (02:15→18:21)
[2022-10-16] MEDS: INSULIN REGULAR, HUMAN 100 UNIT/1 ML SQ SCH ×4 (08:30→22:27)
[2022-10-16] MEDS: MULTIVITAMINS/MINERALS TAB PO SCH (10:33)
[2022-10-16] MEDS: AMIODARONE HCL 200 MG TAB PO SCH (10:34)
[2022-10-16 11:44] LABS: BASOPHILS % 0.6 % (0.0-1.0); EOSINOPHILS # (AUTO) 0.1 (0.0-0.4); EOSINOPHILS % 1.6 % (0.0-6.0); HEMATOCRIT 31.5 % (34.2-44.1); HEMOGLOBIN 10.3 g/dL (12.0-16.0); LYMPHOCYTES # (AUTO) 0.8 (1.0-3.2); LYMPHOCYTES % 15.9 % (18.0-39.1); MEAN CORPUSCULAR HEMOGLOBIN 29.8 pg (28-32); MEAN CORPUSCULAR HGB CONC 32.7 g/dL (31-35); MONOCYTES # (AUTO) 0.5 (0.2-0.8); MONOCYTES % 10.1 % (4.4-11.3); NEUTROPHILS # (AUTO) 3.6 (2.1-6.9); NEUTROPHILS % 71.6 % (38.7-80.0); PLATELET COUNT 193 x10e3/uL (140-360); RED BLOOD COUNT 3.46 x10e6/uL (3.6-5.1); RED CELL DISTRIBUTION WIDTH 14.7 % (11.7-14.4)
[2022-10-16] MEDS: DIPHENOXYLATE/ATROPINE TAB PO SCH ×2 (11:46→22:26)
[2022-10-16 12:04] LABS: ANION GAP 14.4 mmol/L (8-16); CALCIUM 7.9 mg/dL (8.4-10.2); CREATININE, SERUM 0.73 mg/dL (0.57-1.11); POTASSIUM 3.4 mmol/L (3.5-5.1)
[2022-10-16 12:21] LABS: MAGNESIUM 1.4 MG/DL (1.3-2.1); PHOSPHORUS 1.7 MG/DL (2.3-4.7)
[2022-10-17] VITALS (7 sets, daily range): BP systolic 106–142; BP diastolic 48–58
[2022-10-17] MEDS: DEXTROSE 5%/0.45% SOD CHL 1,000 ML IV SCH (05:19)
[2022-10-17] MEDS: INSULIN REGULAR, HUMAN 100 UNIT/1 ML SQ SCH ×4 (08:20→20:26)
[2022-10-17] MEDS: AMIODARONE HCL 200 MG TAB PO SCH (08:47)
[2022-10-17] MEDS: MULTIVITAMINS/MINERALS TAB PO SCH (08:47)
[2022-10-17] MEDS: DIPHENOXYLATE/ATROPINE TAB PO SCH ×2 (08:55→20:43)
[2022-10-18] VITALS (8 sets, daily range): BP systolic 120–137; BP diastolic 46–83
[2022-10-18] MEDS: DEXTROSE 5%/0.45% SOD CHL 1,000 ML IV SCH ×3 (02:59→16:42)
[2022-10-18] MEDS ORDERED: DIPHENOXYLATE/ATROPINE TAB PO SCH (06:00)
[2022-10-18] MEDS: INSULIN REGULAR, HUMAN 100 UNIT/1 ML SQ SCH ×4 (08:30→20:39)
[2022-10-18] MEDS: MULTIVITAMINS/MINERALS TAB PO SCH (08:41)
[2022-10-18] MEDS: AMIODARONE HCL 200 MG TAB PO SCH (08:41)
[2022-10-19] VITALS (8 sets, daily range): BP systolic 118–159; BP diastolic 48–80
[2022-10-19] MEDS: DEXTROSE 5%/0.45% SOD CHL 1,000 ML IV SCH (04:47)
[2022-10-19 05:42] LABS: BASOPHILS % 0.6 % (0.0-1.0); EOSINOPHILS # (AUTO) 0.1 (0.0-0.4); EOSINOPHILS % 2.8 % (0.0-6.0); HEMATOCRIT 29.1 % (34.2-44.1); HEMOGLOBIN 9.1 g/dL (12.0-16.0); LYMPHOCYTES # (AUTO) 1.2 (1.0-3.2); LYMPHOCYTES % 23.8 % (18.0-39.1); MEAN CORPUSCULAR HEMOGLOBIN 29.6 pg (28-32); MEAN CORPUSCULAR HGB CONC 31.3 g/dL (31-35); MEAN CORPUSCULAR VOLUME 94.8 fL (81-99); MONOCYTES # (AUTO) 0.9 (0.2-0.8); MONOCYTES % 17.9 % (4.4-11.3); NEUTROPHILS # (AUTO) 2.7 (2.1-6.9); NEUTROPHILS % 53.9 % (38.7-80.0); PLATELET COUNT 373 x10e3/uL (140-360); RED BLOOD COUNT 3.07 x10e6/uL (3.6-5.1); RED CELL DISTRIBUTION WIDTH 15.5 % (11.7-14.4)
[2022-10-19 06:01] LABS: ANION GAP 12.5 mmol/L (8-16); CALCIUM 7.8 mg/dL (8.4-10.2); CREATININE, SERUM 0.68 mg/dL (0.57-1.11); MAGNESIUM 1.4 MG/DL (1.3-2.1); PHOSPHORUS 2.5 MG/DL (2.3-4.7); POTASSIUM 3.5 mmol/L (3.5-5.1)
[2022-10-19] MEDS: INSULIN REGULAR, HUMAN 100 UNIT/1 ML SQ SCH ×4 (07:30→22:10)
[2022-10-19 08:44] LABS: BAND NEUTROPHILS % (MANUAL) 1 %; EOSINOPHILS % (MANUAL) 5 % (0-7); LYMPHOCYTES % (MANUAL) 15 % (19-48); MONOCYTES % (MANUAL) 20 % (3.4-9.0); MYELOCYTES % (MANUAL) 2 % (0-0); NEUTROPHILS % (MANUAL) 57 % (40-74); PLATELET ESTIMATE ADEQUATE; PLATELET MORPHOLOGY COMMENT NORMAL; RBC MORPHOLOGY COMMENT NORMAL
[2022-10-19] MEDS ORDERED: DIPHENOXYLATE/ATROPINE TAB PO ONE (09:00)
[2022-10-19] MEDS: MULTIVITAMINS/MINERALS TAB PO SCH (11:52)
[2022-10-19] MEDS: AMIODARONE HCL 200 MG TAB PO SCH (11:53)
[2022-10-19] MEDS: CALAMINE LOTION 4 OZ BOTTLE TP PRN (23:00)
[2022-10-20] VITALS (7 sets, daily range): BP systolic 97–127; BP diastolic 45–104
[2022-10-20] MEDS: CALAMINE LOTION 4 OZ BOTTLE TP PRN (03:32)
[2022-10-20] MEDS: DEXTROSE 5%/0.45% SOD CHL 1,000 ML IV SCH (05:00)
[2022-10-20 06:27] LABS: BASOPHILS % 0.5 % (0.0-1.0); EOSINOPHILS # (AUTO) 0.1 (0.0-0.4); EOSINOPHILS % 2.2 % (0.0-6.0); HEMATOCRIT 29.3 % (34.2-44.1); HEMOGLOBIN 9.3 g/dL (12.0-16.0); LYMPHOCYTES # (AUTO) 1.2 (1.0-3.2); LYMPHOCYTES % 19.7 % (18.0-39.1); MEAN CORPUSCULAR HGB CONC 31.7 g/dL (31-35); MEAN CORPUSCULAR VOLUME 94.5 fL (81-99); MONOCYTES # (AUTO) 0.9 (0.2-0.8); MONOCYTES % 15.4 % (4.4-11.3); NEUTROPHILS # (AUTO) 3.7 (2.1-6.9); PLATELET COUNT 347 x10e3/uL (140-360); RED CELL DISTRIBUTION WIDTH 15.3 % (11.7-14.4)
[2022-10-20 06:41] LABS: ANION GAP 13.9 mmol/L (8-16); CALCIUM 7.9 mg/dL (8.4-10.2); CREATININE, SERUM 0.72 mg/dL (0.57-1.11); MAGNESIUM 1.3 MG/DL (1.3-2.1); POTASSIUM 3.9 mmol/L (3.5-5.1)
[2022-10-20] MEDS: INSULIN REGULAR, HUMAN 100 UNIT/1 ML SQ SCH ×4 (07:30→21:03)
[2022-10-20] MEDS: LOPERAMIDE HCL 2 MG CAP NG SCH (10:11)
[2022-10-20] MEDS: AMIODARONE HCL 200 MG TAB PO SCH (10:11)
[2022-10-20] MEDS: MULTIVITAMINS/MINERALS TAB PO SCH (10:11)
[2022-10-21] VITALS (7 sets, daily range): BP systolic 103–157; BP diastolic 33–90
[2022-10-21] MEDS: INSULIN REGULAR, HUMAN 100 UNIT/1 ML SQ SCH ×4 (09:54→21:57)
[2022-10-21] MEDS: MULTIVITAMINS/MINERALS TAB PO SCH (09:58)
[2022-10-21] MEDS: BALSAM PERU/CASTOR OIL 60 GM OINT...G. TP SCH (09:58)
[2022-10-21] MEDS: LOPERAMIDE HCL 2 MG CAP NG SCH (09:58)
[2022-10-21] MEDS: AMIODARONE HCL 200 MG TAB PO SCH (09:59)
[2022-10-21 10:20] LABS: HEMATOCRIT 27.5 % (34.2-44.1); HEMOGLOBIN 9.1 g/dL (12.0-16.0)
[2022-10-22] VITALS (7 sets, daily range): BP systolic 120–151; BP diastolic 45–93
[2022-10-22] MEDS: BALSAM PERU/CASTOR OIL 60 GM OINT...G. TP SCH (09:40)
[2022-10-22] MEDS: AMIODARONE HCL 200 MG TAB PO SCH (09:40)
[2022-10-22] MEDS: LOPERAMIDE HCL 2 MG CAP NG SCH (09:40)
[2022-10-22] MEDS: MULTIVITAMINS/MINERALS TAB PO SCH (09:40)
[2022-10-22] MEDS: INSULIN REGULAR, HUMAN 100 UNIT/1 ML SQ SCH ×4 (09:48→22:49)
[2022-10-23] VITALS (7 sets, daily range): BP systolic 134–156; BP diastolic 37–75
[2022-10-23] MEDS: INSULIN REGULAR, HUMAN 100 UNIT/1 ML SQ SCH ×4 (09:00→21:13)
[2022-10-23] MEDS: AMIODARONE HCL 200 MG TAB PO SCH (09:53)
[2022-10-23] MEDS: LOPERAMIDE HCL 2 MG CAP NG SCH (09:53)
[2022-10-23] MEDS: DIPHENHYDRAMINE HCL ELIX 12.5 MG/5 ML UDC NG PRN ×2 (09:53→21:08)
[2022-10-23] MEDS: MULTIVITAMINS/MINERALS TAB PO SCH (10:13)
[2022-10-23] MEDS: BALSAM PERU/CASTOR OIL 60 GM OINT...G. TP SCH (10:42)
[2022-10-24] VITALS (7 sets, daily range): BP systolic 128–148; BP diastolic 47–90
[2022-10-24] MEDS: INSULIN REGULAR, HUMAN 100 UNIT/1 ML SQ SCH ×4 (09:04→19:55)
[2022-10-24] MEDS: LOPERAMIDE HCL 2 MG CAP NG SCH (09:08)
[2022-10-24] MEDS: AMIODARONE HCL 200 MG TAB PO SCH (09:08)
[2022-10-24] MEDS: MULTIVITAMINS/MINERALS TAB PO SCH (09:08)
[2022-10-24] MEDS: BALSAM PERU/CASTOR OIL 60 GM OINT...G. TP SCH (09:09)
[2022-10-25 04:00] VITALS: BP 138/88
[2022-10-25] MEDS: DIPHENHYDRAMINE HCL ELIX 12.5 MG/5 ML UDC NG PRN (06:49)
[2022-10-25] MEDS: CALAMINE LOTION 4 OZ BOTTLE TP PRN (06:51)
[2022-10-25] MEDS: INSULIN REGULAR, HUMAN 100 UNIT/1 ML SQ SCH ×4 (08:11→21:08)
[2022-10-25 08:18] VITALS: BP 119/46
[2022-10-25 08:21] VITALS: BP 119/46
[2022-10-25] MEDS: MULTIVITAMINS/MINERALS TAB PO SCH (08:57)
[2022-10-25] MEDS: LOPERAMIDE HCL 2 MG CAP NG SCH (08:58)
[2022-10-25] MEDS: AMIODARONE HCL 200 MG TAB PO SCH (08:58)
[2022-10-25] MEDS: BALSAM PERU/CASTOR OIL 60 GM OINT...G. TP SCH (11:45)
[2022-10-25 12:04] VITALS: BP 132/51
[2022-10-25 20:00] VITALS: BP 116/77
[2022-10-25 20:35] VITALS: BP 132/51
[2022-10-26] VITALS (9 sets, daily range): BP systolic 117–154; BP diastolic 45–85
[2022-10-26 05:41] LABS: BASOPHILS % 0.4 % (0.0-1.0); EOSINOPHILS # (AUTO) 0.4 (0.0-0.4); HEMATOCRIT 27.9 % (34.2-44.1); HEMOGLOBIN 8.6 g/dL (12.0-16.0); LYMPHOCYTES # (AUTO) 1.5 (1.0-3.2); LYMPHOCYTES % 13.7 % (18.0-39.1); MEAN CORPUSCULAR HEMOGLOBIN 29.8 pg (28-32); MEAN CORPUSCULAR HGB CONC 30.8 g/dL (31-35); MEAN CORPUSCULAR VOLUME 96.5 fL (81-99); MONOCYTES # (AUTO) 0.9 (0.2-0.8); MONOCYTES % 8.6 % (4.4-11.3); NEUTROPHILS # (AUTO) 7.8 (2.1-6.9); NEUTROPHILS % 71.6 % (38.7-80.0); PLATELET COUNT 436 x10e3/uL (140-360); RED BLOOD COUNT 2.89 x10e6/uL (3.6-5.1); RED CELL DISTRIBUTION WIDTH 14.9 % (11.7-14.4)
[2022-10-26 06:20] LABS: ALBUMIN 1.4 g/dL (3.5-5.0); ALBUMIN/GLOBULIN RATIO 0.4 (0.8-2.0); ANION GAP 13.1 mmol/L (8-16); CALCIUM 7.5 mg/dL (8.4-10.2); CREATININE, SERUM 0.63 mg/dL (0.57-1.11); POTASSIUM 4.1 mmol/L (3.5-5.1)
[2022-10-26] MEDS: LOPERAMIDE HCL 2 MG CAP NG SCH (08:25)
[2022-10-26] MEDS: MULTIVITAMINS/MINERALS TAB PO SCH (08:25)
[2022-10-26] MEDS: AMIODARONE HCL 200 MG TAB PO SCH (08:26)
[2022-10-26] MEDS: INSULIN REGULAR, HUMAN 100 UNIT/1 ML SQ SCH ×4 (08:30→21:02)
[2022-10-26] MEDS ORDERED: COLLAGENASE 5 GM TUBE TOP PRN (17:00)
[2022-10-27] VITALS (8 sets, daily range): BP systolic 118–158; BP diastolic 60–92
[2022-10-27] MEDS: COLLAGENASE 5 GM TUBE TOP SCH (08:00)
[2022-10-27] MEDS: INSULIN REGULAR, HUMAN 100 UNIT/1 ML SQ SCH ×4 (08:30→22:22)
[2022-10-27] MEDS ORDERED: COLLAGENASE 5 GM TUBE TOP SCH (09:00)
[2022-10-27] MEDS ORDERED: PERMETHRIN 5% CREAM 60 GM TUBE TOP ONE ×2 (09:15→11:00)
[2022-10-27] MEDS: DIPHENHYDRAMINE HCL ELIX 12.5 MG/5 ML UDC NG PRN (10:31)
[2022-10-27] MEDS: LOPERAMIDE HCL 2 MG CAP NG SCH (10:32)
[2022-10-27] MEDS: AMIODARONE HCL 200 MG TAB PO SCH (10:32)
[2022-10-27] MEDS: MULTIVITAMINS/MINERALS TAB PO SCH (10:32)
[2022-10-28] VITALS: BP 157/60
[2022-10-28 05:39] VITALS: BP 148/52
[2022-10-28 08:11] VITALS: BP 139/80
[2022-10-28 09:00] VITALS: BP 139/80
[2022-10-28] MEDS: INSULIN REGULAR, HUMAN 100 UNIT/1 ML SQ SCH ×3 (09:44→15:46)
[2022-10-28] MEDS: LOPERAMIDE HCL 2 MG CAP NG SCH (09:48)
[2022-10-28] MEDS: MULTIVITAMINS/MINERALS TAB PO SCH (09:48)
[2022-10-28] MEDS: AMIODARONE HCL 200 MG TAB PO SCH (09:48)
[2022-10-28] MEDS: COLLAGENASE 5 GM TUBE TOP SCH (09:48)
[2022-10-28 11:53] VITALS: BP 154/74
[2022-10-28 16:04] VITALS: BP 117/66
== END 2022-10-28 18:24 | DRG 871 ==
LOC: ER 15:53 → ERHOLD 19:32 → ICU 20:15 → MED/SURG2 10-12 13:08
PROVIDERS: ADMIT Internal Medicine; ATTEND Internal Medicine
PROC: 02HV33Z Insertion of Infusion Device into Superior Vena Cava, Percutaneous Approach (ICD-10-PCS; 2022-10-04)
PROC: 3E04329 Introduction of Other Anti-infective into Central Vein, Percutaneous Approach (ICD-10-PCS; 2022-10-04)
PROC: 3E04329 Introduction of Other Anti-infective into Central Vein, Percutaneous Approach (ICD-10-PCS; 2022-10-04)
PROC: 3E04329 Introduction of Other Anti-infective into Central Vein, Percutaneous Approach (ICD-10-PCS; 2022-10-05)
PROC: 3E04329 Introduction of Other Anti-infective into Central Vein, Percutaneous Approach (ICD-10-PCS; 2022-10-06)
PROC: 3E04329 Introduction of Other Anti-infective into Central Vein, Percutaneous Approach (ICD-10-PCS; 2022-10-07)
PROC: 3E04329 Introduction of Other Anti-infective into Central Vein, Percutaneous Approach (ICD-10-PCS; 2022-10-07)
PROC: 3E04329 Introduction of Other Anti-infective into Central Vein, Percutaneous Approach (ICD-10-PCS; 2022-10-08)
PROC: 0DH63UZ Insertion of Feeding Device into Stomach, Percutaneous Approach (ICD-10-PCS; 2022-10-09)
PROC: 3E04329 Introduction of Other Anti-infective into Central Vein, Percutaneous Approach (ICD-10-PCS; 2022-10-09)
PROC: 3E04329 Introduction of Other Anti-infective into Central Vein, Percutaneous Approach (ICD-10-PCS; 2022-10-10)
PROC: 3E04329 Introduction of Other Anti-infective into Central Vein, Percutaneous Approach (ICD-10-PCS; 2022-10-11)
PROC: 3E04329 Introduction of Other Anti-infective into Central Vein, Percutaneous Approach (ICD-10-PCS; 2022-10-12)
PROC: 3E04329 Introduction of Other Anti-infective into Central Vein, Percutaneous Approach (ICD-10-PCS; 2022-10-13)
PROC: 30233N1 Transfusion of Nonautologous Red Blood Cells into Peripheral Vein, Percutaneous Approach (ICD-10-PCS; principal; 2022-10-14)
PROC: 3E04329 Introduction of Other Anti-infective into Central Vein, Percutaneous Approach (ICD-10-PCS; 2022-10-14)
PROC: 05HY33Z Insertion of Infusion Device into Upper Vein, Percutaneous Approach (ICD-10-PCS; 2022-10-23)
DX: A41.9 Sepsis, unspecified organism (principal); G93.41 Metabolic encephalopathy; K20.91 Esophagitis, unspecified with bleeding; K29.71 Gastritis, unspecified, with bleeding; K26.4 Chronic or unspecified duodenal ulcer with hemorrhage; E87.0 Hyperosmolality and hypernatremia; N17.9 Acute kidney failure, unspecified; N39.0 Urinary tract infection, site not specified; E87.1 Hypo-osmolality and hyponatremia; I31.39 Other pericardial effusion (noninflammatory); I50.32 Chronic diastolic (congestive) heart failure; F23 Brief psychotic disorder; E44.0 Moderate protein-calorie malnutrition; D61.818 Other pancytopenia; D62 Acute posthemorrhagic anemia; Z68.1 Body mass index [BMI] 19.9 or less, adult; R65.20 Severe sepsis without septic shock; F31.9 Bipolar disorder, unspecified; E86.0 Dehydration; F41.9 Anxiety disorder, unspecified; E11.65 Type 2 diabetes mellitus with hyperglycemia; K58.9 Irritable bowel syndrome, unspecified; R19.7 Diarrhea, unspecified; E87.8 Other disorders of electrolyte and fluid balance, not elsewhere classified; E88.09 Other disorders of plasma-protein metabolism, not elsewhere classified; E87.6 Hypokalemia; I11.0 Hypertensive heart disease with heart failure; E83.42 Hypomagnesemia; M19.90 Unspecified osteoarthritis, unspecified site; K44.9 Diaphragmatic hernia without obstruction or gangrene; M32.9 Systemic lupus erythematosus, unspecified; I48.0 Paroxysmal atrial fibrillation; F03.90 Unspecified dementia, unspecified severity, without behavioral disturbance, psychotic disturbance, mood disturbance, and anxiety; B86 Scabies; R13.12 Dysphagia, oropharyngeal phase; M06.9 Rheumatoid arthritis, unspecified; I27.20 Pulmonary hypertension, unspecified; Z79.84 Long term (current) use of oral hypoglycemic drugs; Z79.899 Other long term (current) drug therapy; Z79.891 Long term (current) use of opiate analgesic; Z86.711 Personal history of pulmonary embolism; Z87.01 Personal history of pneumonia (recurrent); Z86.69 Personal history of other diseases of the nervous system and sense organs; Z88.5 Allergy status to narcotic agent; Z88.2 Allergy status to sulfonamides; Z88.8 Allergy status to other drugs, medicaments and biological substances; Z87.891 Personal history of nicotine dependence
CPT/HCPCS: 36415; 36569; 43246; 51700; 71045; 80048; 80053; 81001; 82270; 82550; 82553; 82948; 83605; 83735; 83880; 84100; 84484; 85014; 85018; 85025; 85610; 85730; 86850; 86900; 86920; 87040; 87045; 87071; 87086; 87205; 93005; 93306; 94640; 94799; 96361; 96372; 99252; 99284; J0360; J0456; J0696; J1160; J1644; J1817; J2001; J3370; J3411; J3475; J3480; J7030; J7050; P9016